=== PATIENT | female | born 1950 | race Caucasian/White ===

== ENCOUNTER 2019-12-11 21:24 | Inpatient (IN) | payer MEDICAID, MEDICARE ==
[~2019-12-11] VITALS: Ht 165.1 cm; Wt 105.5 kg
[2019-12-11 21:58] LABS: BASOPHILS % (AUTO) 0.4 % (0.0-2.0); EOSINOPHILS % (AUTO) 0.7 % (0.0-4.0); HEMATOCRIT 42.8 % (36-48); HEMOGLOBIN 13.6 g/dL (12.0-16.0); LYMPHOCYTES # (AUTO) 1.1 K/uL (1.0-5.5); LYMPHOCYTES % (AUTO) 17.3 % (20.5-51.5); MEAN CORPUSCULAR HEMOGLOBIN 29 pg (27-31); MEAN CORPUSCULAR HGB CONC 32 % (32-36); MEAN CORPUSCULAR VOLUME 91 fL (79.0-98.0); MONOCYTES # (AUTO) 1.1 K/uL (0.0-1.0); MONOCYTES % (AUTO) 16.8 % (1.7-9.3); NEUTROPHILS # (AUTO) 4.1 K/uL (1.8-7.7); NEUTROPHILS % (AUTO) 64.8 % (40.0-70.0); RED BLOOD CELL COUNT(AUTO) 4.68 MIL/uL (4.2-6.2); RED CELL DISTRIBUTION WIDTH 14.8 % (9.0-15.0); WHITE BLOOD COUNT (AUTO) 6.4 K/uL (4.8-10.8)
[2019-12-11 22:06] LABS: PLATELET COUNT (AUTO) 92 K/uL (130-430)
[2019-12-11] MEDS ORDERED: GLU850 PO (22:06)
[2019-12-11] MEDS ORDERED: NITR0.4T47 SL (22:06)
[2019-12-11] MEDS ORDERED: ASPI-1153 PO (22:06)
[2019-12-11] MEDS ORDERED: LIP40 PO (22:06)
[2019-12-11] MEDS ORDERED: METO50TA7 PO (22:06)
[2019-12-11] MEDS ORDERED: AMLO5TAB92 PO (22:06)
[2019-12-11] MEDS ORDERED: IPRATROPIUM/ALBUTEROL SULFATE 3 ML AMPUL.NEB (DUONEB) INH ONE ×2 (22:15→23:15)
[2019-12-11 22:19] LABS: ANION GAP 5 (5-15); CALCIUM 8.1 mg/dL (8.4-11.0); CHLORIDE 104 mmol/L (98-107); CREATININE 0.72 mg/dL (0.55-1.30); GLUCOSE 132 mg/dL (70-99); POTASSIUM 4.2 mmol/L (3.5-5.1); SODIUM SERUM 143 mmol/L (136-145); UREA NITROGEN, BLOOD 22 mg/dL (8-21)
[2019-12-11 22:25] LABS: ALANINE AMINOTRANSFERASE 54 U/L (12-78); ALBUMIN 2.9 g/dL (3.4-4.8); ASPARTATE AMINOTRANSFERASE 22 U/L (10-37); TOTAL BILIRUBIN 0.7 mg/dL (0.0-1.0)
[2019-12-11 22:26] LABS: PROTHROMBIN TIME 10.3 SECS (9.5-12.5)
[2019-12-11] MEDS ORDERED: methylPREDNISolone SOD SUCC/PF 62.5 MG/ML VIAL IVP ONE (23:15)
[2019-12-12] VITALS: BP_SYST 124
[2019-12-12] MEDS ORDERED: IPRATROPIUM/ALBUTEROL SULFATE 3 ML AMPUL.NEB (DUONEB) INH ONE (00:15)
[2019-12-12] MEDS ORDERED: MAGNESIUM SULFATE 50 ML IV ONE (00:15)
[2019-12-12] MEDS ORDERED: IPRATROPIUM/ALBUTEROL SULFATE 3 ML AMPUL.NEB (DUONEB) INH PRN (02:15)
[2019-12-12] MEDS ORDERED: ACETAMINOPHEN 325 MG TABLET PO PRN (02:15)
[2019-12-12] MEDS ORDERED: LR 1,000 ML IV SCH (02:15)
[2019-12-12] MEDS ORDERED: LEVOFLOXACIN 500 MG/D5W 100 ML IV ONE (03:00)
[2019-12-12] MEDS: IPRATROPIUM/ALBUTEROL SULFATE 3 ML AMPUL.NEB (DUONEB) INH SCH ×6 (04:15→23:38)
[2019-12-12 04:42] VITALS: BP_SYST 136
[2019-12-12] MEDS ORDERED: FLU VACC TS2019(65UP)/MF59C/PF 45 MCG/0.5 ML SYRINGE I.M. PRN (04:45)
[2019-12-12 08:15] VITALS: BP_SYST 124
[2019-12-12 12:15] VITALS: BP_SYST 133
[2019-12-12] MEDS ORDERED: METOPROLOL SUCCINATE 50 MG TAB.SR.24H (TOPROL XL) PO ONE (12:45)
[2019-12-12] MEDS ORDERED: NITROGLYCERIN 0.4 MG TAB.SUBL SL SCH (12:45)
[2019-12-12] MEDS ORDERED: amLODIPine BESYLATE 5 MG TABLET PO ONE (12:45)
[2019-12-12] MEDS ORDERED: DEXTROSE 50% JECT 50 ML DISP.SYRIN IVP PRN (12:45)
[2019-12-12] MEDS ORDERED: ASPIRIN 81 MG TABLET(ECOTRIN) PO ONE (12:45)
[2019-12-12] MEDS ORDERED: ATORVASTATIN 20 MG TABLET PO ONE (12:45)
[2019-12-12 16:17] VITALS: BP_SYST 114
[2019-12-12] MEDS: MUPIROCIN 2% TOPICAL OINTMENT 22 GM TP SCH ×2 (16:53→22:18)
[2019-12-12] MEDS: INSULIN REGULAR, HUMAN 100 UNITS/ML, 10 ML VIAL (humuLIN R) SUBCUT PRN ×2 (17:01→22:27)
[2019-12-12 20:00] VITALS: BP_SYST 138
[2019-12-12] MEDS: LEVOFLOXACIN 500 MG/D5W 100 ML IV SCH (22:17)
[2019-12-12] MEDS: EMOLLIENT COMBINATION NO.73 78 GM CREAM..G. TP SCH (22:18)
[2019-12-12] MEDS: ENOXAPARIN SODIUM 40 MG/0.4 ML SYRINGE SUBCUT SCH (22:20)
[2019-12-13] VITALS: BP_SYST 124
[2019-12-13] MEDS: IPRATROPIUM/ALBUTEROL SULFATE 3 ML AMPUL.NEB (DUONEB) INH SCH ×6 (02:58→23:12)
[2019-12-13 07:13] LABS: BASOPHILS % (AUTO) 0.2 % (0.0-2.0); EOSINOPHILS % (AUTO) 0.2 % (0.0-4.0); HEMATOCRIT 39.2 % (36-48); HEMOGLOBIN 12.4 g/dL (12.0-16.0); LYMPHOCYTES % (AUTO) 16.3 % (20.5-51.5); MEAN CORPUSCULAR HEMOGLOBIN 29 pg (27-31); MEAN CORPUSCULAR HGB CONC 32 % (32-36); MEAN CORPUSCULAR VOLUME 92 fL (79.0-98.0); MONOCYTES # (AUTO) 1.1 K/uL (0.0-1.0); MONOCYTES % (AUTO) 17.8 % (1.7-9.3); NEUTROPHILS # (AUTO) 4.1 K/uL (1.8-7.7); NEUTROPHILS % (AUTO) 65.5 % (40.0-70.0); PLATELET COUNT (AUTO) 103 K/uL (130-430); RED BLOOD CELL COUNT(AUTO) 4.24 MIL/uL (4.2-6.2); RED CELL DISTRIBUTION WIDTH 14.7 % (9.0-15.0); WHITE BLOOD COUNT (AUTO) 6.3 K/uL (4.8-10.8)
[2019-12-13 07:44] LABS: ALANINE AMINOTRANSFERASE 39 U/L (12-78); ALBUMIN 2.6 g/dL (3.4-4.8); ASPARTATE AMINOTRANSFERASE 17 U/L (10-37); CALCIUM 8.1 mg/dL (8.4-11.0); CHLORIDE 106 mmol/L (98-107); CREATININE 0.68 mg/dL (0.55-1.30); GLUCOSE 88 mg/dL (70-99); POTASSIUM 4.3 mmol/L (3.5-5.1); SODIUM SERUM 142 mmol/L (136-145); THYROID STIMULATING HORMONE 1.15 uIu/mL (0.36-3.74); TOTAL BILIRUBIN 0.4 mg/dL (0.0-1.0); UREA NITROGEN, BLOOD 22 mg/dL (8-21)
[2019-12-13 07:54] LABS: ANION GAP < 3 (5-15)
[2019-12-13 08:00] VITALS: BP_SYST 124
[2019-12-13 08:27] LABS: CHOLESTEROL 107 mg/dL (<200); HDL CHOLESTEROL 54 mg/dL (>55); LDL CHOLESTEROL 42 mg/dL (<100); TRIGLYCERIDES 46 mg/dL (30-150)
[2019-12-13 08:32] LABS: C-REACTIVE PROTEIN QUANT 0.5 mg/dL (0-0.5)
[2019-12-13] MEDS: METOPROLOL SUCCINATE 50 MG TAB.SR.24H (TOPROL XL) PO SCH ×2 (08:35→08:42)
[2019-12-13 08:38] LABS: RETICULOCYTE COUNT 2.3 % (0.5-1.5)
[2019-12-13] MEDS: MUPIROCIN 2% TOPICAL OINTMENT 22 GM TP SCH ×2 (08:38→21:12)
[2019-12-13] MEDS: ATORVASTATIN 20 MG TABLET PO SCH (08:38)
[2019-12-13] MEDS: EMOLLIENT COMBINATION NO.73 78 GM CREAM..G. TP SCH ×2 (08:39→21:12)
[2019-12-13] MEDS: ASPIRIN 81 MG TABLET(ECOTRIN) PO SCH (08:39)
[2019-12-13] MEDS: amLODIPine BESYLATE 5 MG TABLET PO SCH (08:40)
[2019-12-13] MEDS ORDERED: FUROSEMIDE 20 MG/2 ML VIAL IVP ONE (12:00)
[2019-12-13] MEDS: INSULIN REGULAR, HUMAN 100 UNITS/ML, 10 ML VIAL (humuLIN R) SUBCUT PRN ×3 (12:16→21:23)
[2019-12-13 12:17] VITALS: BP_SYST 127
[2019-12-13 15:55] VITALS: BP_SYST 133
[2019-12-13 19:00] VITALS: BP_SYST 103
[2019-12-13 20:00] VITALS: BP_SYST 103
[2019-12-13] MEDS: FUROSEMIDE 20 MG/2 ML VIAL IVP SCH (21:11)
[2019-12-13] MEDS: ENOXAPARIN SODIUM 40 MG/0.4 ML SYRINGE SUBCUT SCH (21:23)
[2019-12-13] MEDS: LEVOFLOXACIN 500 MG/D5W 100 ML IV SCH (22:44)
[2019-12-14] VITALS: BP_SYST 105
[2019-12-14] MEDS: IPRATROPIUM/ALBUTEROL SULFATE 3 ML AMPUL.NEB (DUONEB) INH SCH ×6 (03:00→23:42)
[2019-12-14 07:11] LABS: ANION GAP 3 (5-15); CALCIUM 8.9 mg/dL (8.4-11.0); CHLORIDE 96 mmol/L (98-107); CREATININE 0.71 mg/dL (0.55-1.30); GLUCOSE 110 mg/dL (70-99); SODIUM SERUM 137 mmol/L (136-145); UREA NITROGEN, BLOOD 22 mg/dL (8-21)
[2019-12-14 07:22] LABS: BASOPHILS % (AUTO) 0.4 % (0.0-2.0); EOSINOPHILS # (AUTO) 0.1 K/uL (0.0-0.4); EOSINOPHILS % (AUTO) 0.9 % (0.0-4.0); HEMATOCRIT 43.6 % (36-48); HEMOGLOBIN 14.1 g/dL (12.0-16.0); LYMPHOCYTES # (AUTO) 1.1 K/uL (1.0-5.5); LYMPHOCYTES % (AUTO) 14.4 % (20.5-51.5); MEAN CORPUSCULAR HEMOGLOBIN 29 pg (27-31); MEAN CORPUSCULAR HGB CONC 32 % (32-36); MEAN CORPUSCULAR VOLUME 91 fL (79.0-98.0); MONOCYTES # (AUTO) 1.2 K/uL (0.0-1.0); MONOCYTES % (AUTO) 16.1 % (1.7-9.3); NEUTROPHILS # (AUTO) 5.2 K/uL (1.8-7.7); NEUTROPHILS % (AUTO) 68.2 % (40.0-70.0); PLATELET COUNT (AUTO) 129 K/uL (130-430); RED BLOOD CELL COUNT(AUTO) 4.79 MIL/uL (4.2-6.2); RED CELL DISTRIBUTION WIDTH 14.7 % (9.0-15.0); WHITE BLOOD COUNT (AUTO) 7.6 K/uL (4.8-10.8)
[2019-12-14 07:55] VITALS: BP_SYST 119
[2019-12-14] MEDS: EMOLLIENT COMBINATION NO.73 78 GM CREAM..G. TP SCH ×2 (09:12→20:37)
[2019-12-14] MEDS: MUPIROCIN 2% TOPICAL OINTMENT 22 GM TP SCH ×2 (09:12→20:37)
[2019-12-14] MEDS: FUROSEMIDE 20 MG/2 ML VIAL IVP SCH (09:13)
[2019-12-14] MEDS: ATORVASTATIN 20 MG TABLET PO SCH (09:14)
[2019-12-14] MEDS: METOPROLOL SUCCINATE 50 MG TAB.SR.24H (TOPROL XL) PO SCH (09:14)
[2019-12-14] MEDS: ASPIRIN 81 MG TABLET(ECOTRIN) PO SCH (09:14)
[2019-12-14] MEDS: amLODIPine BESYLATE 5 MG TABLET PO SCH (09:14)
[2019-12-14 10:08] LABS: FOLATE (FOLIC ACID) 9.5 ng/mL (>3.0)
[2019-12-14 11:12] VITALS: BP_SYST 125
[2019-12-14 13:06] LABS: HEPATITIS A AB, IgM Negative (Negative); HEPATITIS B CORE AB, IgM Negative (Negative); HEPATITIS B SURFACE AG Negative (Negative)
[2019-12-14 15:19] VITALS: BP_SYST 132
[2019-12-14 20:00] VITALS: BP_SYST 115
[2019-12-14] MEDS: ENOXAPARIN SODIUM 40 MG/0.4 ML SYRINGE SUBCUT SCH (20:44)
[2019-12-14] MEDS: LEVOFLOXACIN 500 MG/D5W 100 ML IV SCH (20:53)
[2019-12-15] VITALS (7 sets, daily range): BP systolic 118–132
[2019-12-15 06:57] LABS: BASOPHILS % (AUTO) 0.5 % (0.0-2.0); EOSINOPHILS # (AUTO) 0.1 K/uL (0.0-0.4); EOSINOPHILS % (AUTO) 1.7 % (0.0-4.0); HEMATOCRIT 43.8 % (36-48); HEMOGLOBIN 14.1 g/dL (12.0-16.0); LYMPHOCYTES % (AUTO) 18.9 % (20.5-51.5); MEAN CORPUSCULAR HEMOGLOBIN 29 pg (27-31); MEAN CORPUSCULAR HGB CONC 32 % (32-36); MEAN CORPUSCULAR VOLUME 90 fL (79.0-98.0); MONOCYTES % (AUTO) 18.3 % (1.7-9.3); NEUTROPHILS # (AUTO) 3.3 K/uL (1.8-7.7); NEUTROPHILS % (AUTO) 60.6 % (40.0-70.0); PLATELET COUNT (AUTO) 111 K/uL (130-430); RED BLOOD CELL COUNT(AUTO) 4.85 MIL/uL (4.2-6.2); RED CELL DISTRIBUTION WIDTH 14.8 % (9.0-15.0); WHITE BLOOD COUNT (AUTO) 5.4 K/uL (4.8-10.8)
[2019-12-15] MEDS: IPRATROPIUM/ALBUTEROL SULFATE 3 ML AMPUL.NEB (DUONEB) INH SCH ×5 (07:23→23:53)
[2019-12-15 07:32] LABS: ANION GAP 4 (5-15); CALCIUM 9.1 mg/dL (8.4-11.0); CHLORIDE 95 mmol/L (98-107); CREATININE 0.79 mg/dL (0.55-1.30); GLUCOSE 108 mg/dL (70-99); SODIUM SERUM 136 mmol/L (136-145); UREA NITROGEN, BLOOD 23 mg/dL (8-21)
[2019-12-15] MEDS: ATORVASTATIN 20 MG TABLET PO SCH (08:50)
[2019-12-15] MEDS: MUPIROCIN 2% TOPICAL OINTMENT 22 GM TP SCH ×2 (08:50→21:38)
[2019-12-15] MEDS: EMOLLIENT COMBINATION NO.73 78 GM CREAM..G. TP SCH ×2 (08:50→21:39)
[2019-12-15] MEDS: ASPIRIN 81 MG TABLET(ECOTRIN) PO SCH (08:51)
[2019-12-15] MEDS: METOPROLOL SUCCINATE 50 MG TAB.SR.24H (TOPROL XL) PO SCH (08:51)
[2019-12-15] MEDS: amLODIPine BESYLATE 5 MG TABLET PO SCH (08:51)
[2019-12-15] MEDS ORDERED: FUROSEMIDE 40 MG TABLET PO ONE (10:00)
[2019-12-15] MEDS: INSULIN REGULAR, HUMAN 100 UNITS/ML, 10 ML VIAL (humuLIN R) SUBCUT PRN (11:28)
[2019-12-15] MEDS: ENOXAPARIN SODIUM 40 MG/0.4 ML SYRINGE SUBCUT SCH (21:38)
[2019-12-16] VITALS: BP_SYST 125
[2019-12-16] MEDS: IPRATROPIUM/ALBUTEROL SULFATE 3 ML AMPUL.NEB (DUONEB) INH SCH ×6 (03:00→23:02)
[2019-12-16 08:00] VITALS: BP_SYST 155
[2019-12-16] MEDS: ATORVASTATIN 20 MG TABLET PO SCH (08:52)
[2019-12-16] MEDS: METOPROLOL SUCCINATE 50 MG TAB.SR.24H (TOPROL XL) PO SCH (08:53)
[2019-12-16] MEDS: EMOLLIENT COMBINATION NO.73 78 GM CREAM..G. TP SCH ×2 (08:54→20:34)
[2019-12-16] MEDS: amLODIPine BESYLATE 5 MG TABLET PO SCH (08:54)
[2019-12-16] MEDS: ASPIRIN 81 MG TABLET(ECOTRIN) PO SCH (08:55)
[2019-12-16] MEDS: MUPIROCIN 2% TOPICAL OINTMENT 22 GM TP SCH ×2 (08:55→20:32)
[2019-12-16 12:18] VITALS: BP_SYST 123
[2019-12-16] MEDS ORDERED: IPRA3AMP9 INH (13:04)
[2019-12-16 16:50] VITALS: BP_SYST 126
[2019-12-16 19:48] VITALS: BP_SYST 127
[2019-12-16] MEDS: ENOXAPARIN SODIUM 40 MG/0.4 ML SYRINGE SUBCUT SCH (20:33)
[2019-12-17 00:55] VITALS: BP_SYST 135
[2019-12-17] MEDS: IPRATROPIUM/ALBUTEROL SULFATE 3 ML AMPUL.NEB (DUONEB) INH SCH ×3 (03:00→11:15)
[2019-12-17 05:07] LABS: HAPTOGLOBIN 175 mg/dL (42-346)
[2019-12-17] MEDS: ASPIRIN 81 MG TABLET(ECOTRIN) PO SCH (08:11)
[2019-12-17] MEDS: amLODIPine BESYLATE 5 MG TABLET PO SCH (08:12)
[2019-12-17] MEDS: ATORVASTATIN 20 MG TABLET PO SCH (08:12)
[2019-12-17] MEDS: METOPROLOL SUCCINATE 50 MG TAB.SR.24H (TOPROL XL) PO SCH (08:13)
[2019-12-17 08:14] VITALS: BP_SYST 118
[2019-12-17] MEDS: EMOLLIENT COMBINATION NO.73 78 GM CREAM..G. TP SCH (10:05)
[2019-12-17] MEDS: MUPIROCIN 2% TOPICAL OINTMENT 22 GM TP SCH (10:05)
[2019-12-17] MEDS: INSULIN REGULAR, HUMAN 100 UNITS/ML, 10 ML VIAL (humuLIN R) SUBCUT PRN (12:07)
[2019-12-17 15:53] VITALS: BP_SYST 120
== END 2019-12-17 16:12 | disposition home health service (06) | DRG 140 ==
LOC: SED 21:24 → STU 12-12 02:14
PROVIDERS: ADMIT Internal Medicine; ATTEND Internal Medicine
DX: J44.1 Chronic obstructive pulmonary disease with (acute) exacerbation (principal); J96.21 Acute and chronic respiratory failure with hypoxia; R65.11 Systemic inflammatory response syndrome (SIRS) of non-infectious origin with acute organ dysfunction; E44.0 Moderate protein-calorie malnutrition; D69.6 Thrombocytopenia, unspecified; I11.0 Hypertensive heart disease with heart failure; E66.01 Morbid (severe) obesity due to excess calories; I50.9 Heart failure, unspecified; I83.009 Varicose veins of unspecified lower extremity with ulcer of unspecified site; I27.81 Cor pulmonale (chronic); J96.22 Acute and chronic respiratory failure with hypercapnia; L97.909 Non-pressure chronic ulcer of unspecified part of unspecified lower leg with unspecified severity; R16.2 Hepatomegaly with splenomegaly, not elsewhere classified; E78.5 Hyperlipidemia, unspecified; E11.9 Type 2 diabetes mellitus without complications; E78.00 Pure hypercholesterolemia, unspecified; K76.0 Fatty (change of) liver, not elsewhere classified; Z87.891 Personal history of nicotine dependence; Z68.38 Body mass index [BMI] 38.0-38.9, adult; Z88.0 Allergy status to penicillin; Z79.899 Other long term (current) drug therapy; Z79.82 Long term (current) use of aspirin; J45.901 Unspecified asthma with (acute) exacerbation; Z79.4 Long term (current) use of insulin
CPT/HCPCS: 36415; 36600; 71045; 71046-TC; 71270-TC; 76700-TC; 80048; 80053; 80061; 80074; 82607; 82746; 82803-TC; 82962; 83010; 83036; 83605; 83615-TC; 83735-TC; 83880; 84443-TC; 84484; 85025; 85044-TC; 85379; 85384-TC; 85610-TC; 85651-TC; 85730-TC; 86140; 87040-TC; 93005; 93306; 94640; 94660; 94760; 96374; 99285; G0378; J1650; J1815; J1940; J1956; J2930; J3475